=== PATIENT | male | born 1985 | race African-American/Black ===

== ENCOUNTER 2022-09-29 17:39 | Emergency (ER) | payer OTHER ==
--- OUTSIDE RECORDS SUMMARY | 2022-09-29 18:28 | EXTERNAL MEDICAL SUMMARY RPT | Continuity of Care Document ---
Author Name Unknown Address [address] [place] [address] Phone Organization [place] Address [address] [place] [address] Phone Problems date description facility 2022-08-05 12:18 Unspecified visual loss [facility] 2022-08-05 12:26 Unspecified visual [facility] Results/Labs test date facility value unit notes
[2022-09-29] MEDS ORDERED: DEXAMETHASONE 10 MG/ML VIAL PO STA (19:29)
[2022-09-29] MEDS ORDERED: HYDROcod/ACETAM 5/325 MG TABLET PO STA (19:29)
[2022-09-29] MEDS ORDERED: methocarbamoL 500 MG TABLET PO STA (19:29)
--- NOTE | 2022-09-29 20:22 | ED Physician Documentation ---
History of Present Illness - Stated complaint Stated Complaint: NECK PX/CHANDLER/ARM PX - Chief complaint Chief Complaint: General - History obtained from History obtained from: Patient - History of Present Illness Timing: Other (1 month) Pain level max: 7 Pain level now: 6 - Additonal information Additional information: 37-year-old male presents to the emergency department complaint of ongoing neck pain for the past 1 month. He states that occasionally it radiates down the left arm. He is currently in physical therapy. He has had intermittent headaches as well. The pain is worse with movement, nothing makes it better. Was taking Tylenol and Excedrin Migraine but was told to stop this by his doctor. He states that the neck feels like it is spasmed. No trauma. Has not been trialed on muscle relaxants, steroids or other medications. No fevers. No recent illnesses. No trauma. Review of Systems Constitutional: denies: Fever, Chills Ears: denies: Ear pain Nose: denies: Rhinorrhea / runny nose, Congestion Respiratory: denies: Cough GI: denies: Vomiting, Diarrhea Skin: denies: Rash Musculoskeletal: denies: Neck pain, Back pain Neurologic: denies: Headache PD PAST MEDICAL HISTORY - Past Medical History Past Medical History: No - Past Surgical History Past Surgical History: No - Present Medications Home Medications: Ambulatory Orders Medication Instructions Recorded Confirmed Meloxicam [Mobic] 7.5 mg PO BID PRN #20 tablet 09/29/22 methocarbamoL [Robaxin] 500 mg PO Q6H PRN #20 tablet 09/29/22 methylPREDNISolone [Medrol] 4 mg PO DAILY #1 ea 09/29/22 - Allergies Allergies/Adverse Reactions: Allergies Allergy/AdvReac Type Severity Reaction Status Date / Time No Known Drug Allergies Allergy Verified 09/29/22 18:08 - Living Situation Living Situation: reports: With family Living Arrangement: reports: At home PD ED PE NORMAL - Vitals Vital signs reviewed: Yes - General General: Alert and oriented X 3, No acute distress - HEENT HEENT: PERRL, Moist mucous membranes - Neck Neck: Supple, no meningeal sign, No bony TTP (No midline tenderness to palpation or percussion. No step-off or deformity. Paraspinal spasm present left greater than right. Limited range of motion secondary to pain.) - Cardiac Cardiac: RRR, Strong equal pulses - Respiratory Respiratory: No respiratory distress, Clear bilaterally - Abdomen Abdomen: Soft, Non tender, Non distended - Back Back: No spinal TTP - Derm Derm: Warm and dry - Neuro Neuro: Alert and oriented X 3, principal trainer 2-12 intact, No motor deficit, No sensory deficit, Normal speech Eye Opening: Spontaneous Motor: Obeys Commands Verbal: Oriented GCS Score: 15 - Psych Psych: Normal mood, Normal affect Results - Vitals Vitals: Vital Signs - 24 hr 09/29/22 09/29/22 18:05 20:40 Temperature 36.6 C Heart Rate 87 75 Respiratory 20 16 Rate Blood Pressure 171/94 H 155/105 H O2 Saturation 100 98 PD Medical Decision Making - ED course Complexity details: re-evaluated patient, considered differential, d/w patient, d/w family ED course: 37-year-old male with what appears to be cervical radiculopathy and paracervical muscle spasm. He was treated with oral dexamethasone, hydrocodone and Robaxin. Pain greatly improved and he is able to move his neck. No indication for emergent neuroimaging at this time. Recommend outpatient MRI. No focal neurological deficits. We will prescribe pain medication and muscle relaxants for home as well as a Medrol Dosepak. Patient counseled regarding signs and symptoms for which I believe and urgent re-evaluation would be necessary. Patient with good understanding of and agreement to plan and is comfortable going home at this time This document was made in part using voice recognition software. While efforts are made to proofread this document, sound alike and grammatical errors may occur. Departure - Departure Disposition: 01 Home, Self Care Clinical Impression: Neck muscle spasm Condition: Good Instructions: ED Spasm Neck No Injury, ED Cervical Radiculopathy Follow-Up: ES LOZA PA-C [Primary Care Provider] - Prescriptions: methylPREDNISolone [Medrol] 4 mg PO DAILY #1 ea Meloxicam [Mobic] 7.5 mg PO BID PRN #20 tablet PRN Reason: Pain methocarbamoL [Robaxin] 500 mg PO Q6H PRN #20 tablet PRN Reason: muscle spasm Comments: Your prescriptions were sent to [facility] in [place]. Please follow-up with your doctor for further care. Please return if you worsen. It is recommended that you have a MRI of your cervical spine unavailable. Continue to gently stretch your neck at home. Forms: PCP List Discharge Date/Time: 09/29/22 20:40
[2022-09-29 20:42] VITALS: BP 155/105; O2SAT 98
== END 2022-09-29 20:40 | disposition home or self-care (01) ==
LOC: ED 17:39
DX: M62.838 Other muscle spasm (principal)
CPT/HCPCS: 99282; 99283; A9270

== ENCOUNTER 2022-11-09 12:53 | Outpatient (CLI) | payer OTHER ==
--- NOTE | 2022-11-09 13:44 | Sleep Patient Instructions ---
Sleep Center Visit Summary - Patient Visit Information Reason for Visit: Initial Consultation - Patient Instructions Instructions Attached: Sleep Study Home Monitor Additional Instructions: You will be completing a sleep study, either an in-lab polysomnography (PSG) or home sleep study (HST). You will follow-up in the sleep care office after the sleep study is completed to hear the results and talk about therapy, if needed. You will be called by our office staff to schedule this appointment, but you may contact us with any questions. - Clinic Information Contact: [facility] [address] [place] [address] [email or web address] T: [phone]
--- NOTE | 2022-11-09 13:47 | SLEEP CARE CONSULTATION ---
Information from patient questionnaire entered by Anahy Blanchard. I have reviewed and concur with the information entered by Anahy Blanchard. This document represents the service I personally performed and the decisions made by me, Lea Elizondo ARNP. History of Present Illness Service Date and Time: 11/09/2022 1253 Reason for Visit: New patient Accompanied by: Spouse (Shefali) Chief Complaint: reports: Insomnia, Unrefreshed sleep, Snoring, Excessive daytime sleepiness, Fatigue, Frequent awakenings at night Date of Onset: 2YRS Usual bedtime: 9-11PM Time it takes to fall asleep: 30-45MIN Snores at night: Yes Observed to quit breathing while asleep: Yes Sleeps alone due to snoring: Yes (sometimes) Number of times waking at night: 3-4 Reasons for waking at night: reports: Snoring, Gasping for air, Bathroom, Other (NOISE). denies: Choking Toss, Turn, or Twitch while sleeping: Yes Recalls having dreams: Yes Usually gets out of bed at: 7914-3900; weekends some times same to 07-0800 Feels refreshed in the morning: No Morning headache: Yes (almost every day; last gone quickly other last 1/2 -1 day) Sleepy or fatigued during the day: Yes Ever fallen asleep while driving: Yes (drowsy driving; no accidents) Takes day naps: Yes (daily, 2 hours (usually unintentional)) Dreams during day naps: Yes Prior sleep studies: No Additional HPI information: I had the pleasure of seeing SAIMA RUIZ today regarding the possibility of him having a sleep disorder. His current complaints are excessive daytime sleepiness, fatigue, frequent night awakenings, insomnia, snoring and unrefreshed sleep. He states he is going through a "slew" of health issues including sleeping problems. He takes 30-45 minutes to go to sleep. He will wake up several times during the night and then can take a few minutes to get back to sleep. His had told him that he snores but has not noted pauses in breathing. - Parasomnia Symptoms Ever been unable to move upon waking from sleep: Yes (1-2 times a month) Walks in sleep: No Talks in sleep: Yes Ever acted out dreams in sleep: Yes (has woken up with arm outstretched) Ever felt weak in the knees when startled or emotional: Yes (has not fallen to ground) Bothered by creepy, crawly, restless sensations in legs: No Problems with memory or concentration: Yes (both) Subjective Initial [place] Sleepiness Scale score: 21 (11/08/22) Past Medical History Past Medical History: reports: Hypertension, Diabetes (borderline), Arthritis, Other (SPINAL CONDITIONS, NERVE CONDITIONS, HEADACHE, NECK SPASPM) Social History The patient's occupation is a AM. Patient is and lives in . Have you smoked in the past 12 months: No Alcohol use: Yes Alcohol amount and frequency: 4 BEERS 2/WEEK Caffeine use: Yes Caffeine amount and frequency: 3-8 12OZ 8-10 WEEK/ SOMETIMES MORE Family History Family history of sleep disordered breathing: Yes Family Hx Sleep Apnea: Mother: Snoring, Sleep apnea - Untreated, Father: Snoring, Sleep apnea - Untreated, Sibling: Snoring, Sleep apnea - Untreated, Grandparent: Snoring, Sleep apnea - Treated Allergies and Home Medications Known drug allergies: No Drug allergies reviewed: Yes Home medication list reviewed: Yes Allergy and home medication list: Allergies No Known Drug Allergies Allergy (Verified 11/08/22 09:53) Home Medications Medication Instructions Recorded Confirmed Last Taken Type Acetaminophen [8 Hour Pain Relief] See Rx Instructions .ROUTE .COMPLEX 11/09/22 11/09/22 Unknown History Carboxymethylcellulose Sodium See Rx Instructions .ROUTE .COMPLEX 11/09/22 11/09/22 Unknown History Gabapentin [Neurontin] See Rx Instructions .ROUTE .COMPLEX 11/09/22 11/09/22 Unknown History HYDROcod/ACETAM 5/325 [[place] 5/325] See Rx Instructions .ROUTE .COMPLEX 11/09/22 11/09/22 Unknown History Hydrocodone Bitartrate [Hysingla See Rx Instructions .ROUTE .COMPLEX 11/09/22 11/09/22 Unknown History ER] Naproxen [Naprosyn] See Rx Instructions .ROUTE .COMPLEX 11/09/22 11/09/22 Unknown History amLODIPine [Norvasc] See Rx Instructions .ROUTE .COMPLEX 11/09/22 11/09/22 Unknown History dexAMETHasone [Decadron] See Rx Instructions .ROUTE .COMPLEX 11/09/22 11/09/22 Unknown History methocarbamoL [Robaxin] See Rx Instructions .ROUTE .COMPLEX 11/09/22 11/09/22 Unknown History Review of Systems Weight gain over past 5 years: 19 (last was gained) Weight loss over past 5 years: 38 Cardiovascular: reports: high blood pressure, irregular heart rate or pulse, have to sleep sitting up Respiratory: reports: shortness of breath Gastrointestinal: reports: heartburn, abdominal pain Urinary: reports: frequency Neurological: reports: headaches, disorientation, gait or balance problems Psychiatric: reports: anxiety Ear/Nose/Throat: reports: dry mouth/throat, wisdom teeth removed. denies: tonsillectomy Endocrine: reports: too hot or cold, excessive thirst, increased urination, unexplained weakness Musculoskeletal: reports: joint pain, neck pain, back pain, muscle pain or cramping Physical Exam Vital signs obtained and entered by: ANAHY Temple MA Blood Pressure: 124/95 (LEFT) Cuff size: wrist Heart Rate: 86 O2 Saturation: 98 Height: 5 ft 6 in Weight: 187 lb Body Mass Index: 30.2 BMI Classification: Obese Neck circumference: 16.25 Mouth and throat: narrow oropharynx Soft palate: long Hard palate: normal Uvula: normal Uvula visualization: 25% Mallampati Class III Tongue: enlarged in size with teeth rutherford on lateral edges Tonsils: 2+ Neck: normal w/o lymphadenopathy or thyromegaly Heart: regular rate and rhythm Lungs: clear bilaterally Impression and Plan 1. Suspected Obstructive Sleep Apnea-Hypopnea Syndrome, as suggested by a history of loud and irregular snoring, gasping or choking in sleep, morning headache, frequent awakening during the night, unrefreshed sleep, cognitive impairment, and excessive daytime sleepiness. Narrow oropharynx and obesity are common predisposing factors for obstructive sleep apnea-hypopnea syndrome. I recommend proceeding to polysomnography to confirm the diagnosis and to assess severity. If the patient has significant sleep disordered breathing, a manual CPAP titration study will also be performed to find the optimal treatment pressure. I informed the patient of what the sleep studies involve and after some discussion, obtained agreement to proceed. The pathophysiology of obstructive sleep apnea-hypopnea syndrome was discussed with the patient and health risks of cardiovascular and cerebrovascular disease if not treated. Risks of drowsy driving discussed in detail and patient advised to avoid long distance driving and to car clerk pullman at the first sign of drowsiness. Patient agreed to plan. * Schedule polysomnography. * Avoid long distance driving or driving when feeling sleepy. * Avoid alcohol, sedative and muscle relaxant around bedtime. * Attempt to lose weight. * Review instructions provided by trained office staff on how to prepare for the sleep study. * Return for follow-up after sleep study completed. Counseling Topics: Weight loss health impact Plan: PSG/HST with followup Visit Type: In Office Time Spent with Patient (minutes): 30 Provider Statement: I spent 100% of the Face to Face Visit with the patient with greater than 50% spent counseling the patient and coordination of care.
[2022-11-09 13:55] VITALS: BP 124/95; O2SAT 98
== END 2022-11-09 12:54 | disposition home or self-care (01) ==
LOC: SC 12:53
PROVIDERS: ATTEND Nurse Practitioner Family
DX: R06.83 Snoring (principal); G47.8 Other sleep disorders; R51.9 Headache, unspecified; E66.9 Obesity, unspecified; G47.10 Hypersomnia, unspecified; R53.83 Other fatigue; E11.9 Type 2 diabetes mellitus without complications; I10 Essential (primary) hypertension; Z68.30 Body mass index [BMI] 30.0-30.9, adult
CPT/HCPCS: 99203; 99212

== ENCOUNTER 2022-11-24 12:29 | Outpatient (CLI) | payer OTHER | END 2022-11-24 12:30 | disposition home or self-care (01) | LOC: SC 12:29 | PROVIDERS: ATTEND Nurse Practitioner Family | DX: R06.83 Snoring (principal); R09.02 Hypoxemia; E11.9 Type 2 diabetes mellitus without complications; I10 Essential (primary) hypertension | CPT/HCPCS: 95806 ==

== ENCOUNTER 2022-12-21 11:23 | Outpatient (CLI) | payer OTHER ==
--- NOTE | 2022-12-21 12:04 | Sleep Patient Instructions ---
Sleep Center Visit Summary - Patient Visit Information Reason for Visit: Sleep study follow-up - Patient Instructions Instructions Attached: Sleep Study Additional Instructions: Your sleep study today was negative for significant sleep disordered breathing. You will be completing a sleep study an in-lab polysomnography (PSG) to verify results. You will follow-up in the sleep care office after the sleep study is completed to hear the results and talk about therapy, if needed. You will be called by our office staff to schedule this appointment, but you may contact us with any questions. - Clinic Information Contact: [facility] [address] [place] [id number] [email or web address] T: [phone]
--- NOTE | 2022-12-21 12:07 | SLEEP CARE CONSULTATION ---
Information from patient questionnaire entered by Anahy Blanchard. I have reviewed and concur with the information entered by Anahy Blanchard. This document represents the service I personally performed and the decisions made by , Lea Elizondo ARNP. History of Present Illness Service Date and Time: 12/21/2022 112 Initial [place] Sleepiness Scale score: 21 (11/08/22) Current [place] Sleepiness Scale score: 21 Additional HPI information: SAIMA RUIZ returns for follow up and results of the recently performed home sleep study. The patient was informed of the following findings: No significant sleep disordered breathing with an average AHI of 3.3 and jeffrey oxygen saturation of 89%. I explained the pathophysiology behind obstructive sleep apnea. Patient does not have sleep apnea and was advised how weight gain could increase the risk of developing sleep apnea in the future. I strongly encouraged the patient to lose weight. Patient has moderate snoring. Snoring can be reduced by weight loss. Weight loss is best achieved with diet consult. Patient instructed to contact PCP for referral. Snoring can also be treated with an oral appliance from a dentist. Advised to check insurance coverage. In addition, an ENT evaluation can be do to see if other treatment is indicated. Patient counseled not drink alcohol less than 4 hours before bedtime as it can increase snoring and apnea. Patient was cautioned about risks of drowsy driving until sleepiness symptoms resolve. Sleep Study - Results Type of Sleep Study: Home sleep study (COMPLETED 11/24/22) Prior sleep studies: No Polysomnography/Home Sleep Study results: Physician Impression: The quality of the study is good. The length of the study is adequate (> 240 minutes). Please also see the tabulated and graphic data. 1. No significant sleep disordered breathing, with an AHI of 3.3/hr and jeffrey SaO2 of 89%. During the study, the patient had 6 apneas (6 obstructive, 0 central, 0 mixed) and 19 hypopneas. The longest episode lasted 76.5 seconds. The few respiratory events occurred independently of body position (supine AHI was 3.2 and non-supine, 3.68). 2. Hypoxemia (ICD-10 R09.02), minimal, with the lowest oxygen saturation of 89 % and 0.3 minutes with SaO2 under 90%. Baseline oxygen saturation was normal (Average oxygen saturation was 95%). Allergies and Home Medications Known drug allergies: No Drug allergies reviewed: Yes Home medication list reviewed: Yes (no changes) Allergy and home medication list: Allergies No Known Drug Allergies Allergy (Verified 12/20/22 10:06) Review of Systems Review of systems same as previous: Yes (no changes) Physical Exam Vital signs obtained and entered by: LEA SWAIN Blood Pressure: 130/84 Cuff size: wrist (left) Heart Rate: 85 O2 Saturation: 97 Height: 5 ft 6 in Weight: 183 lb 6.4 oz Body Mass Index: 29.6 BMI Classification: Overweight Impression and Plan 1. Suspected Obstructive Sleep Apnea-Hypopnea Syndrome, as suggested by a history of loud and irregular snoring, observed cessation of breath while asleep, gasping or choking in sleep, morning headache, frequent awakening during the night, unrefreshed sleep, cognitive impairment, and excessive daytime sleepiness. He completed HST but was borderline and due to symptoms, I recommend proceeding to polysomnography to confirm the diagnosis and to assess severity. I obtained agreement to proceed. The pathophysiology of obstructive sleep apnea- hypopnea syndrome was discussed with the patient and health risks of cardiovasc ular and cerebrovascular disease if not treated. Risks of drowsy driving discussed in detail and patient advised to avoid long distance driving and to jawbone puller at the first sign of drowsiness. Patient agreed to plan. * Schedule polysomnography. * Avoid long distance driving or driving when feeling sleepy. * Avoid alcohol, sedative and muscle relaxant around bedtime. * Attempt to lose weight. * Review instructions provided by trained office staff on how to prepare for the sleep study. * Return for follow-up after sleep study completed. Counseling Topics: Weight loss health impact Visit Type: In Office Time Spent with Patient (minutes): 16 Provider Statement: I spent 100% of the Face to Face Visit with the patient with greater than 50% spent counseling the patient and coordination of care.
[2022-12-21 12:14] VITALS: BP 130/84; O2SAT 97
== END 2022-12-21 11:24 | disposition home or self-care (01) ==
LOC: SC 11:23
PROVIDERS: ATTEND Nurse Practitioner Family
DX: R06.83 Snoring (principal); G47.8 Other sleep disorders; R06.81 Apnea, not elsewhere classified; G47.10 Hypersomnia, unspecified; E11.9 Type 2 diabetes mellitus without complications; I10 Essential (primary) hypertension; E66.3 Overweight; Z68.29 Body mass index [BMI] 29.0-29.9, adult
CPT/HCPCS: 99212

== ENCOUNTER 2023-05-17 10:15 | Outpatient (CLI) | payer OTHER ==
--- NOTE | 2023-05-17 13:42 | XRAY Report ---
PROCEDURE: Chest 2V INDICATIONS: UPPER RESPIRATORY INFECTION TECHNIQUE: 2 views of the chest were acquired. COMPARISON: None. FINDINGS: Surgical changes and devices: None. Lungs and pleura: No pleural effusions or pneumothorax. Lungs are clear. Mediastinum: Mediastinal contours appear normal. Heart size is normal. Bones and chest wall: No suspicious bony lesions. Overlying soft tissues appear unremarkable. IMPRESSION: No acute cardiopulmonary process. Reviewed by: Latrell Smith MD on 05/17/2023 1:41 PM PDT Approved by: Latrell Smith MD on 05/17/2023 1:41 PM PDT Station ID: [id number]
== END 2023-05-17 10:30 | disposition home or self-care (01) ==
LOC: DI.N 10:15
PROVIDERS: ATTEND Physician Assistant Medical
DX: J06.9 Acute upper respiratory infection, unspecified (principal)

== ENCOUNTER 2023-06-20 18:52 | Emergency (ER) | payer OTHER ==
--- NOTE | 2023-06-20 20:26 | ED Physician Documentation ---
History of Present Illness - Stated complaint Stated Complaint: R SIDE FACE PX - Chief complaint Chief Complaint: General - History obtained from History obtained from: Patient, Family - Additonal information Additional information: The patient comes to the emergency department chief complaint of right throat pain. Patient states has been going on approximately 1 week and then he was started on antibiotics about 5 days ago. He states he had been seen in urgent care at that time and had a strep test which was negative. He had been having fever and runny nose and cough leading up to that, but shortly after he started the antibiotic the symptoms went away except for the painful lymph node. Patient states that he has a very mild cough left over but no other symptoms. He states it does feel like a sharp pain when he tries to swallow and that ibuprofen only last couple of hours before pain comes back. He denies any fevers. No swelling in his throat. No swelling of his tongue or pain in the floor of his mouth. No dental pain. No other complaints at this time. PD PAST MEDICAL HISTORY - Past Medical History Past Medical History: Yes Cardiovascular: Hypertension Musculoskeletal: Chronic back pain - Past Surgical History Past Surgical History: No - Present Medications Home Medications: Ambulatory Orders Medication Instructions Recorded Confirmed Acetaminophen [8 Hour Pain Relief] See Rx Instructions .ROUTE .COMPLEX 11/09/22 11/09/22 Carboxymethylcellulose Sodium See Rx Instructions .ROUTE .COMPLEX 11/09/22 11/09/22 Gabapentin [Neurontin] See Rx Instructions .ROUTE .COMPLEX 11/09/22 11/09/22 HYDROcod/ACETAM 5/325 [[place] 5/325] See Rx Instructions .ROUTE .COMPLEX 11/09/22 11/09/22 Hydrocodone Bitartrate [Hysingla See Rx Instructions .ROUTE .COMPLEX 11/09/22 11/09/22 ER] Naproxen [Naprosyn] See Rx Instructions .ROUTE .COMPLEX 11/09/22 11/09/22 amLODIPine [Norvasc] See Rx Instructions .ROUTE .COMPLEX 11/09/22 11/09/22 dexAMETHasone [Decadron] See Rx Instructions .ROUTE .COMPLEX 11/09/22 11/09/22 methocarbamoL [Robaxin] See Rx Instructions .ROUTE .COMPLEX 11/09/22 11/09/22 HYDROcod/ACETAM 5/325 [[place] 5/325] 1 - 2 tablet PO Q6H PRN #10 tablet 06/20/23 - Allergies Allergies/Adverse Reactions: Allergies Allergy/AdvReac Type Severity Reaction Status Date / Time No Known Drug Allergies Allergy Verified 06/20/23 18:56 - Social History Does the pt smoke?: No Smoking Status: Never smoker Does the pt drink ETOH?: No Does the pt have substance abuse?: No - Immunizations Immunizations are current?: Yes - POLST Patient has POLST: No PD ED PE NORMAL - Vitals Vital signs reviewed: Yes - General General: Alert and oriented X 3, No acute distress, Well developed/nourished - HEENT HEENT: Atraumatic, PERRL, EOMI, Moist mucous membranes, Pharynx benign, [place] ition benign, Other (No swelling or tenderness of the floor of mouth. No tongue elevation. No aphthous ulcers.) - Neck Neck: Supple, no meningeal sign, Other (Tender right superior anterior cervical lymph node. No enlargement.) - Respiratory Respiratory: No respiratory distress - Derm Derm: Normal color, Warm and dry, No rash - Extremities Extremities: No deformity - Neuro Neuro: Alert and oriented X 3, genetics teacher 2-12 intact, Normal speech - Psych Psych: Normal mood, Normal affect Results - Vitals Vitals: Vital Signs - 24 hr 06/20/23 18:56 Temperature 36.8 C Heart Rate 72 Respiratory 16 Rate Blood Pressure 149/89 H O2 Saturation 99 Oxygen O2 Source Room air PD Medical Decision Making - ED course Complexity details: reviewed results, re-evaluated patient, considered differential, d/w patient, d/w family ED course: I discussed with the patient that I am not sure exactly why he has a painful cervical lymph node but given that he was having symptoms consistent with likely viral illness before and given that he has no further findings on exam and had a negative strep test, I suspect that he likely has a viral etiology. As such, the antibiotics would not be expected to be getting rid of the symptoms. The patient would like a respiratory PCR panel done. We have also discussed imaging although given that he does not have any enlargement of the lymph node, findings in his posterior pharynx, or difficulty with speaking, swallowing, breathing, or managing secretions, I do not feel that this is likely to be helpful. We have discussed the need for follow-up and the usual indications for return. The patient has been given a dose of analgesia here in the emergency department. Departure - Departure Disposition: 01 Home, Self Care Clinical Impression: Lymphadenopathy of right cervical region, Viral syndrome Condition: Stable Instructions: ED Viral Syndrome, Lymphadenopathy Prescriptions: HYDROcod/ACETAM 5/325 [[place] 5/325] 1 - 2 tablet PO Q6H PRN #10 tablet PRN Reason: Pain Comments: You do have a lymph node on the right upper portion of your neck that is tender and is likely the source of your pain. However, it is not significantly enlarged compared to the other 1 on the other side of your neck and your throat exam is normal. You have not had any persistence of fever or development of swelling within your throat or your mouth or your neck to raise concern for a more serious process going on. The fact that your symptoms have not responded to antibiotics indicates that it is most likely that this is not a bacterial process. Given the symptoms you are having prior, it is likely that you have a viral illness. We have sent a viral panel to evaluate for some of the viruses that we can test for and This should be back within the next couple of hours. Viral illnesses generally are self-limited and there is no specific medication to get rid of them. Now that you have taken 5 days of your antibiotic course, you might as well finish the rest of the course over the next couple of days. You have been given a dose of pain medication tonight and this is compatible with ibuprofen, as you are also welcome to take a dose of the ibuprofen as needed. A prescription for a little more pain medication has been electronically transmitted to the [facility] pharmacy in [place]. You may pick this up in the morning. Please follow-up with your primary care physician as needed. Forms: PCP List
[2023-06-20] MEDS: HYDROcod/ACETAM 5/325 MG TABLET PO STA (20:29)
[2023-06-20 20:55] VITALS: BP 130/88; O2SAT 100
[2023-06-20 21:25] LABS: B. PARAPERTUSSIS- RESP PCR PAN NOT DETECTED; B. PERTUSSIS- RESP PCR PANEL NOT DETECTED; C. PNEUMONIAE- RESP PCR PANEL NOT DETECTED; CORONAVIRUS 229E-RESP PCR NOT DETECTED; CORONAVIRUS HKU1-RESP PCR NOT DETECTED; CORONAVIRUS NL63-RESP PCR NOT DETECTED; CORONAVIRUS OC43-RESP PCR NOT DETECTED; HUMAN METAPNEUMOVIRUS NOT DETECTED; INFLUENZA A- RESP PCR PANEL NOT DETECTED; INFLUENZA B - RESP PCR PANEL NOT DETECTED; M. PNEUMONIAE- RESP PCR PANEL NOT DETECTED; PARAINFLUENZA VIRUS 1 NOT DETECTED; PARAINFLUENZA VIRUS 2 NOT DETECTED; PARAINFLUENZA VIRUS 3 NOT DETECTED; PARAINFLUENZA VIRUS 4 NOT DETECTED; RHINOVIRUS/ENTEROVIRUS NOT DETECTED; RSV- RESP PCR PANEL NOT DETECTED; SARS-CoV-2 -RESP PCR PANEL NOT DETECTED
== END 2023-06-20 20:54 | disposition home or self-care (01) ==
LOC: ED 18:52
DX: R59.0 Localized enlarged lymph nodes (principal); B34.9 Viral infection, unspecified; I10 Essential (primary) hypertension; Z20.818 Contact with and (suspected) exposure to other bacterial communicable diseases; Z20.822 Contact with and (suspected) exposure to COVID-19; Z20.828 Contact with and (suspected) exposure to other viral communicable diseases
CPT/HCPCS: 87633; 99283; A9270